=== PATIENT | female | born 1990 | race Caucasian/White ===

== ENCOUNTER 2016-11-03 14:12 | Emergency (ER) | payer OTHER ==
--- NOTE | 2016-11-03 14:17 | ER Document Report ---
ED Medical Screen (RME) - General Chief Complaint: Foot Injury Stated Complaint: FOOT PAIN Time seen by provider: 14:16 Mode of Arrival: Ambulatory Information source: Patient Notes: 26-year-old female presents to ED for right foot pain after her child kicked a juice bottle out of the car at the latest directly on her foot injuring her foot. I have greeted and performed a rapid initial assessment of this patient. A comprehensive ED assessment and evaluation of the patient, analysis of test results and completion of medical decision making process will be conducted by an additional ED providers. TRAVEL OUTSIDE OF THE [place] IN LAST 30 DAYS: No - Related Data Allergies/Adverse Reactions: ciprofloxacin [From Cipro] Allergy (Verified 06/22/16 11:27) codeine Allergy (Verified 06/22/16 11:27) egg Allergy (Verified 06/22/16 11:27) Past Medical History Traumatic Medical History: Reports: Hx Fractures - right arm Past Surgical History: Reports: Hx Tonsillectomy - Immunizations Hx Diphtheria, Pertussis, Tetanus Vaccination: Yes
[2016-11-03] MEDS ORDERED: ACETAMINOPHEN 325 MG TABLET PO ONE (14:18)
--- NOTE | 2016-11-03 16:51 | ER Document Report ---
HPI - HPI Patient complains to provider of: foot pain Pain Level: 3 Context: patient is a26 year old female complaining of right foot pain. her daughter had dropped a container of juice on her right foot last evening. woke up with pain this am. pain over the top of her right foot metatarsals 3-4. mild bruising and mild swelling. otherwise ambulatory no PMH no PCP PSH is c section, , T&A social etoh - REPRODUCTIVE Reproductive: DENIES: : - DERM Skin Color: Normal Past Medical History - General Information source: Patient - Social History Smoking Status: Never Smoker Chew tobacco use (# tins/day): No Frequency of alcohol use: None Drug Abuse: None Family History: None Patient has suicidal ideation: No Patient has homicidal ideation: No Renal/ Medical History: Denies: Hx Peritoneal Dialysis Traumatic Medical History: Reports: Hx Fractures - right arm Past Surgical History: Reports: Hx Tonsillectomy - Immunizations Hx Diphtheria, Pertussis, Tetanus Vaccination: Yes Vertical Provider Document - CONSTITUTIONAL Exam Limitations: No Limitations General Appearance: WD/WN, No Apparent Distress - INFECTION CONTROL TRAVEL OUTSIDE OF THE [place] IN LAST 30 DAYS: No - RESPIRATORY O2 Sat by Pulse Oximetry: 100 - CARDIOVASCULAR Pulses: Normal: Dorsalis pedis - MUSCULOSKELETAL/EXTREMETIES Musculoskeletal/Extremeties: MAEW, FROM, Tender - over top right foot, Edema - mild edema, Eccymosis - mild discoloration on top right foot - NEURO Level of Consciousness: Awake, Alert, Appropriate Motor/Sensory: No Motor Deficit, No Sensory Deficit - DERM Integumentary: Warm, Dry, No Rash Course - Re-evaluation Re-evalutation: 11/03/16 16:51 No evidence of fracture. Educated on rest, ice, compression and elevation. Can take [id number] NSAIDs - Vital Signs Vital signs: Temp Pulse Resp BP Pulse Ox 98.2 F 63 16 128/66 H 100 11/03/16 14:18 11/03/16 14:18 11/03/16 14:18 11/03/16 14:18 11/03/16 14:18 Discharge - Discharge Clinical Impression: Foot pain, right Condition: Good Disposition: HOME, SELF-CARE Instructions: Use of Iale-Fhk-Gjddayt Ibuprofen ([facility]), Ice & Elevation ([facility]), Elevation & Warmth ([facility]), Jairo Wrap ([facility]) Forms: Return to Work
[2016-11-03 17:10] VITALS: BP 104/59
== END 2016-11-03 17:02 | disposition home or self-care (01) ==
LOC: ER 14:12
DX: M79.671 Pain in right foot (principal); W20.8XXA Other cause of strike by thrown, projected or falling object, initial encounter
CPT/HCPCS: 99283